=== PATIENT | female | born 1975 | race Caucasian/White ===

== ENCOUNTER → 2016-08-09 | Outpatient (CLI) | payer MEDICAID, MEDICARE, OTHER ==
--- NOTE | 2016-08-09 17:16 | REP ---
BILATERAL MAMMOGRAM WITH LEFT BREAST ULTRASOUND: The patient complains of pain in the upper left breast. Mammogram is performed in the MLO and CC projections and compared to prior studies, most recently 01/20/2016. The breast parenchyma is moderately dense. This limits the sensitivity of the mammogram. No mass is seen. No clustered microcalcifications are seen. Real-time sonographic evaluation is performed of the upper left breast in the region of pain. There appears to be a dilated duct containing complex material with focal bulging of the duct. This is located at 9-o'clock. Underlying nodule cannot be excluded. IMPRESSION: ACR 4 suspicious. No mammographic abnormality is seen. In the region of 9-o'clock left breast there is a dilated duct containing complex material with focal bulging of the duct. I cannot exclude underlying solid nodule. Recommend ultrasound guided biopsy. BI-RADS/ACR category 4 mammogram. Suspicious abnormality - biopsy should be considered. Usually requires biopsy. This mammogram was interpreted with the aid of an FDA-approved computer-aided detection system. The patient states she/he has not had a clinical breast exam in over a year. The patient letter being requested is M4. Signed by Daren Antoine MD 08/10/2016 05:11 P
== END ==
LOC: M RAD 12:28
PROVIDERS: ATTEND Internal Medicine
DX: N64.4 Mastodynia (principal); R92.8 Other abnormal and inconclusive findings on diagnostic imaging of breast
CPT/HCPCS: 76642; G0204